=== PATIENT | female | born 2000 | race Caucasian/White ===

== ENCOUNTER 2021-11-30 13:26 | Emergency (ER) | payer BC ==
[2021-11-30 13:33] VITALS: BP 111/68; PULSE 105; TEMP 98.3; BMI 24.2
[2021-11-30 15:13] LABS: HCG,QUALITATIVE URINE Negative
[2021-11-30 15:15] LABS: EPI CELLS >36 /uL (0-25.1); HYALINE CASTS 8 /uL (0-3.1); PH,URINE 5.5 (5.0-8.0); URINE APPEARANCE CLOUDY; URINE BACTERIA 878 /uL (0-1359); URINE BILIRUBIN NEGATIVE (NEGATIVE); URINE COLOR YELLOW; URINE GLUCOSE (UA) NEGATIVE (NEGATIVE); URINE KETONE TRACE (NEGATIVE); URINE LEUK ESTERASE TRACE (NEGATIVE); URINE NITRITE NEGATIVE (NEGATIVE); URINE PROTEIN TRACE (NEGATIVE); URINE RBC 5 /uL (0-23.9); URINE UROBILINOGEN 0.2 mg/dL (0.2-1.0); URINE WBC 60 /uL (0-25.8)
== END 2021-11-30 15:41 | disposition home or self-care (01) ==
LOC: JERFT 13:26
DX: R21 Rash and other nonspecific skin eruption (principal); N90.7 Vulvar cyst; Z20.2 Contact with and (suspected) exposure to infections with a predominantly sexual mode of transmission
CPT/HCPCS: 36415; 81003; 84703; 87086; 87252; 87491; 87591; 99283-25